=== PATIENT | male | born 1960 | race African-American/Black ===

== ENCOUNTER 2019-04-20 03:09 | Inpatient (IN) ==
[2019-04-20] MEDS ORDERED: TORADOL IV ONE (03:22)
[2019-04-20] MEDS ORDERED: NS 1,000 ML IV ONE (03:22)
--- NOTE | 2019-04-20 03:23 | PROVIDER DOCUMENTATION ---
HPI-Abdominal Pain/GI Problem - General Stated Complaint: abdominal pain Time Seen by Provider: 04/20/19 03:21 Allergies/Adverse Reactions: Patient Allergies Allergy/AdvReac Type Severity Reaction Status Date / Time No Known Allergies Allergy Verified 07/27/18 01:38 Home Medications: Home Medication List Medication Instructions Recorded Confirmed Last Taken Type Omeprazole 20 mg PO DAILY #30 capsule. 07/27/18 Unknown Rx Sulfamethoxazole/Trimethoprim 1 ea PO BID #14 tab 07/27/18 Unknown Rx [Bactrim Ds Tablet] - History of Present Illness-ABD Nature of Presenting Problems: A 58 Y/O MALE PRESENTS WITH C/O R LOWER ABD PAIN FOR PAST 1-2 HRS. PAIN IS LOCALIZED AND ABOUT A 10 AND SHARP IN NATURE. DENIES ANY OTHER SYMPTOMS. Abdominal Pain Onset Location: reports: RLQ Pain Radiation: reports: no radiation Quality of Pain: reports: sharp, stabbing Severity in ED: reports: severe Onset/Duration: reports: 1-3 hours ago Timing: reports: still present, constant Activities at Onset: reports: none Exposure to sick contacts?: No Modifying Factors: improves with: nothing Associated Symptoms: reports: constipation, genitourinary problems. denies: chest pain, cough, diarrhea, fatigue, fever/chills, muscle aches, nausea, shortn ess of breath, pain with inspiration, vomiting Last BM: unsure Dark Stools Present?: reports: none noticed Rectal Bleeding: reports: none Rectal Pain: reports: none Emesis Description: reports: none Bruising or Bleeding Gums?: No Similar Symptoms Previously?: No Recently seen or treated by another doctor?: No Review of Systems - Adult - REVIEW OF SYSTEMS - ADULT Constitutional: denies: no symptoms reported Eyes: denies: no symptoms reported Ears, Nose, Mouth & Throat: denies: no symptoms reported Cardiovascular: denies: no symptoms reported Respiratory: denies: no symptoms reported Gastrointestinal: reports: see HPI Genitourinary: reports: see HPI Musculoskeletal: denies: no symptoms reported Integumentary: denies: no symptoms reported Neurological: denies: no symptoms reported Psychiatric: denies: no symptoms reported Endocrine: denies: no symptoms reported Hematologic/Lymphatic: denies: no symptoms reported Allergic/Immunologic: denies: no symptoms reported Past History - Adult - PAST MEDICAL HISTORY-ADULT Review of Records: reports: Nursing Assessment Review, Medications Reviewed, Social history reviewed & non-contributory. Major Childhood Illnesses: reports: denies history Cardiovascular: reports: denies history Respiratory: reports: denies history Gastrointestinal: reports: denies history Obstetrical/Gynecological: reports: denies history Genitourinary: reports: denies history Musculoskeletal: reports: denies history Neurological: reports: denies history Endocrine/Immune: reports: denies history Other Conditions: reports: denies history - IMMUNIZATION STATUS Childhood Immunizations: See Nurse Assessment Flu Vaccine: See Nurse Assessment - FAMILY HISTORY Family History: reviewed, not pertinent Physical Exam-General - CONSTITUTIONAL General Appearance: alert, moderate distress - EYES Eyes: PERRL/EOMI - HEAD, EARS, NOSE, MOUTH & THROAT HENMT: normocephalic/atraumatic, moist mucous membranes, normal ENT inspection - NECK Neck: supple - RESPIRATORY Respiratory: lungs clear, normal breath sounds, no respiratory distress, no accessory muscle use - CARDIOVASCULAR Cardiovascular: no murmur, tachycardia - GASTROINTESTINAL (ABDOMEN) Abdominal Exam: normal bowel sounds, soft, tenderness (RLQ). negative: McBurney's point tenderness, Hardy's sign - MUSCULOSKELETAL Back Exam: no CVA tenderness, no vertebral tenderness Extremity: no pedal edema - SKIN Integumentary: normal color, warm/dry - NEUROLOGIC Neurologic: grossly normal - PSYCHIATRIC Psych/Mental Status: normal mood/affect, oriented x 3, anxious Progress - PLAN OF CARE/RESULTS Progress/Plan/Lab Results: Orders Category Date Time Status Saline Loc DIRECTED Care 04/20/19 03:21 Ordered NPO Diet 04/20/19 03:[address] ABDOMEN/PELVIS W/O CONTRAST [CT] Stat Exams 04/20/19 03:22 Ordered AMYLASE [CHEM] Stat Lab 04/20/19 03:21 Uncollected CBC WITH ELECTRONIC DIFF [HEME] Stat Lab 04/20/19 03:21 Uncollected COMPREHENSIVE METABOLIC PANEL [CHEM] Stat Lab 04/20/19 03:21 Uncollected LACTATE, PLASMA [CHEM] Stat Lab 04/20/19 03:23 Uncollected LIPASE [CHEM] Stat Lab 04/20/19 03:21 Uncollected URINALYSIS W/POSS RFLX CULT [URINALYSIS] Stat Lab 04/20/19 03:21 Uncollected Ketorolac [Toradol] Med 04/20/19 03:22 Once 30 mg IV NOW ONE Ns 1000 ml IV Bolus X1 Med 04/20/19 03:22 Ordered 0.9% Sodium Chloride Inj [Ns] 1,000 ml IV 999 mls/hr Result Diagrams: 04/20/19 04:20 04/20/19 04:20 - CT/MRI 1 CT Study: Abdomen Impression: Abnormal, See EMR Report - CONSULTS/PCP/HOSPITALIST Notification #1 *Consult/PCP/Hospitalist*: DR FRAZIER Time Discussed: 06:58 Reason/Comments: RECOMMENDED TO ADMIT TO HOSPITALIST, IF PAIN IS NOT CONTROLLED #2 Consult: DR GONZALES Time Discussed: 07:00 Consult Disposition: Admit Departure - Departure Date of Disposition Decision: 04/20/19 Time of Disposition Decision: 06:59 DIAGNOSIS: Hydronephrosis, Hydroureter, Abdominal pain Disposition: ADMITTED INPATIENT 09 Certified Medical Emergency: Emergent Condition: Stable Referrals and Follow-Ups: None,PCP [Primary Care Provider] - - Critical Care Note This patient required my direct & personal management of CC.: No Attestation - Physician/ JEREMIAH Attestation Patient care was provided by Advanced Practice Provider:: No The physician spent face to face time with patient:: Yes Advanced Practice Provider documentation review:: Supervising physician onsite and consulted in the evaluation and care of this patient. The physician did have a face to face encounter with the patient.
[2019-04-20 04:52] LABS: AGAP 12; ALBUMIN 3.8 g/dL (3.5-5.0); ALKALINE PHOSPHATASE 139 U/L (32-122); AMYLASE 69 U/L (20-200); BUN 15 mg/dL (8-22); CALCIUM 8.9 mg/dL (8.8-10.2); CHLORIDE 98 mmol/L (98-107); COSMO 273; CREATININE 0.8 mg/dL (0.7-1.2); ESTIMATED GFR > 60; GLUCOSE 108 mg/dL (70-104); GOT 20 U/L (10-34); GPT 9 U/L (10-44); LIPASE 122 U/L (13-60); POTASSIUM 3.9 mmol/L (3.5-5.1); SODIUM 136 mmol/L (136-145); TCO2 26 mmol/L (25-35); TOTAL BILIRUBIN 0.55 mg/dL (0.20-1.00); TOTAL PROTEIN 7.5 g/dL (6.3-8.3)
[2019-04-20 04:57] LABS: BASO# 0.05 X1000 (0.0-0.2); BASO% 0.5 % (0.0-0.8); EOS# 0.01 X1000 (0.0-0.7); EOS% 0.1 % (0.0-10.0); HEMATOCRIT 50.9 % (42.0-52.0); HEMOGLOBIN 17.7 g/dL (14.0-18.0); IMM GRAN# 0.02 X1000 (0.0-0.04); IMM GRAN% 0.2 % (0.0-0.5); LYMPH# 1.56 X1000 (1.2-3.4); LYMPH% 16.8 % (20.5-51.1); MCH 32.2 PG (27-31); MCHC 34.8 g/dL (33-37); MCV 92.7 FL (81-99); MONO# 0.82 X1000 (0.11-0.59); MONO% 8.9 % (1.7-9.3); MPV 11.4 FL (7.4-10.4); NEUT% 73.5 % (42.2-75.2); PLT 166 X1000 (130-400); RBC 5.49 XMIL (4.7-6.1); RDW 12.9 % (11.5-14.5); WBC 9.26 X1000 (4.8-10.8)
--- NOTE | 2019-04-20 05:40 | Diag Imaging Result Doc PS360 ---
EXAM: CT ABDOMEN/PELVIS W/O CONTRAST HISTORY: abd pain TECHNIQUE: CT abdomen and pelvis without contrast COMPARISON: 07/27/2018 FINDINGS: There are tiny nodules in the lung bases similar to the prior study. No focal hepatic abnormality identified on this noncontrasted exam. No calcified stones. Normal spleen, pancreas, and adrenal glands. Severe atherosclerosis. Mild dilatation of the distal abdominal aorta measuring 2.9 cm. There are multiple bilateral renal stones. The largest on the right measures 8 mm the largest measures 4 mm. No left-sided hydronephrosis. Mild right-sided hydronephrosis. There is thickening to the wall of urinary bladder although it is poorly distended. No bowel obstruction. Appendix is not identified. No abscess. Normal prostate. Prior surgery to the left hip. IMPRESSION: 1.Multiple bilateral renal stones with right-sided hydronephrosis, but no ureteral stone. There was no hydronephrosis on the prior study. 2.Severe atherosclerosis 3.Nondistended urinary bladder versus cystitis 4.A preliminary report was given at 4:13 AM This exam was performed using automated exposure control, adjustment of mA or kV according to patient size, and/or use of iterative reconstruction technique. Electronically signed by Duglas Lamar 04/20/2019 5:38 AM
[2019-04-20 06:24] LABS: URINE SOURCE CLEAN CATCH
[2019-04-20 07:01] LABS: UR AMPHETAMINES QUAL PRESUMPTIVE POSITIVE (NONE DETECT); UR BARBITUATES QUAL NONE DETECTED (NONE DETECT); UR BENZODIAZEPIN QUAL NONE DETECTED (NONE DETECT); UR CANNABINOIDS QUAL NONE DETECTED (NONE DETECT); UR COCAINE QUAL NONE DETECTED (NONE DETECT); UR METHADONE QUAL NONE DETECTED (NONE DETECT); UR OPIATES QUAL NONE DETECTED (NONE DETECT); UR OXYCODONE QUAL NONE DETECTED (NONE DETECT); UR PCP QUAL NONE DETECTED (NONE DETECT)
[2019-04-20] MEDS ORDERED: ZOFRAN IM ONE (07:01)
[2019-04-20] MEDS ORDERED: MORPHINE IV ONE (07:01)
[2019-04-20 07:58] LABS: UR EPITHELIAL CELLS <10 /HPF (<10); URINE BACTERIA NEGATIVE /HPF; URINE RBC TNTC /HPF (<10); URINE WBC <10 /HPF (<10)
[2019-04-20 08:07] LABS: BILIRUBIN URINE NEGATIVE (NEGATIVE); BLOOD URINE LARGE (NEGATIVE); COLOR ORANGE; GLUCOSE URINE NEGATIVE (NEGATIVE); KETONE URINE 60 mg/dL (NEGATIVE); LEUKOCYTES URINE NEGATIVE (NEGATIVE); NITRITE URINE NEGATIVE (NEGATIVE); PROTEIN URINE 30 mg/dL (NEGATIVE); SP GRAVITY URINE 1.022; TURBIDITY URINE HAZY (CLEAR); UROBILINOGEN URINE 2 mg/dL (NORMAL)
[2019-04-20] MEDS ORDERED: TYLENOL PO PRN (08:07)
[2019-04-20] MEDS ORDERED: ZOFRAN IV PRN (08:07)
[2019-04-20] MEDS ORDERED: NORCO-7.5 PO PRN (08:07)
[2019-04-20] MEDS ORDERED: MORPHINE IV PRN ×2 (08:08→08:11)
[2019-04-20] MEDS ORDERED: APRESOLINE IV ONE (08:09)
[2019-04-20] MEDS ORDERED: APRESOLINE IV PRN (08:09)
[2019-04-20] MEDS: M.V.I.-12 10 ML, FOLIC ACID 1 MG, MAGNESIUM SULFATE 1 GM, THIAMINE 100 MG in NS 1,000 ML IV SCH (09:00)
[2019-04-20] MEDS ORDERED: M.V.I.-12 10 ML, FOLIC ACID 1 MG, MAGNESIUM SULFATE 1 GM, THIAMINE 100 MG in NS 1,000 ML IV ONE (10:00)
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
[2019-04-20] MEDS: NS 1,000 ML IV SCH ×3 (11:52→23:16)
[2019-04-20] MEDS ORDERED: ROCEPHIN 1 GM in NS 50 ML IV ONE (11:58)
[2019-04-20] MEDS ORDERED: NEOSPORIN G.U. IRRIGANT ONE (12:48)
[2019-04-20] MEDS ORDERED: XYLOCAINE-MPF 2% ONE (12:49)
[2019-04-20] MEDS ORDERED: DIPRIVAN 1% ONE (12:49)
[2019-04-20] MEDS ORDERED: NEO-SYNEPHRINE ONE (13:18)
[2019-04-20] MEDS ORDERED: DITROPAN PO PRN (14:06)
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
--- NOTE | 2019-04-20 16:36 | OPERATIVE NOTE ---
PROCEDURE DATE: 04/20/2019 SURGEON: Arturo Lopez MD. PREOPERATIVE DIAGNOSIS: Severe right flank pain with bilateral renal lithiasis and right hydroureteronephrosis. POSTOPERATIVE DIAGNOSIS: 1. Severe right flank pain with bilateral renal lithiasis and right hydroureteronephrosis. 2. A probable spontaneously passed right ureteral stone. PROCEDURE PERFORMED: 1. Cystoscopic exam, bilateral retrograde ureteral pyelograms. 2. Placement of a right double-J stent. FINDINGS: Cystoscopic exam: Urethra-greater than 21 Trinidadian without stricture. Prostate-mild hypertrophy of the lateral lobes, elevated bladder neck, length approximately 3 cm. Bladder- normal ureteral orifices bilaterally. There appeared to be small amounts of stone debris in the bladder. There were grade 1-2 trabeculations. No papillary lesions. Small cellules noted. Left retrograde ureteral pyelogram normal without filling defect. Right retrograde ureteral pyelogram reveals a normal ureter inferior to the pelvic brim. Above the pelvic brim it was somewhat dilated and tortuous. There was a filling defect in the right lower pole kidney consistent with his 8 mm stone seen on CT scan. No other filling defects were noted. Rectal exam reveals a prostate of about 30 g, smooth, and symmetric. INDICATION FOR PROCEDURE: This 58-year-old male with a history of intermittent gross hematuria, bilateral renal lithiasis and severe right flank pain was admitted for further evaluation. DESCRIPTION OF PROCEDURE: After informed consent was obtained from the patient, him receiving IV antibiotics, he was taken the main OR cystoscopy room and placed in the supine position. General anesthesia via laryngeal mask was achieved. He was then placed in the low lithotomy position and prepped and draped in the usual sterile fashion for cystoscopic exam. A 21-Trinidadian cystoscope was passed through the patient's urethra, prostate, and in the bladder. Findings noted above. An 8- Trinidadian cone-tipped catheter was passed through the cystoscope, engaged left ureteral orifice. Contrast was injected. Right side was accomplished similarly. Findings are as noted above. The only filling defect was in the right lower pole kidney consistent with the 8 mm stone. The 8- Trinidadian cone-tipped catheter was removed. A 0.035 ZIPwire was passed through the cystoscope, engaged the right ureteral orifice, advanced up into the kidney. Area below the kidney the ureter became very tortuous and the patient was placed in Trendelenburg and finally the ureter straightened out and the wire was advanced up into the kidney. A 6-Trinidadian, 24 cm double-J stent was passed over the ZIPwire and up into the kidney. The renal end was verified by fluoroscopic exam, bladder end directly visualized. The bladder was drained. Cystoscope was removed. Stent removal string securely taped the penile shaft. Rectal exam was performed. He tolerated the procedure well. Estimated blood loss was 0. He was taken to recovery room in good condition. cc: Arturo Lopez MD
[2019-04-21 06:10] LABS: BASO# 0.02 X1000 (0.0-0.2); BASO% 0.3 % (0.0-0.8); EOS# 0.09 X1000 (0.0-0.7); EOS% 1.4 % (0.0-10.0); HEMATOCRIT 44.8 % (42.0-52.0); HEMOGLOBIN 15.2 g/dL (14.0-18.0); IMM GRAN# 0.02 X1000 (0.0-0.04); IMM GRAN% 0.3 % (0.0-0.5); LYMPH# 2.32 X1000 (1.2-3.4); LYMPH% 35.9 % (20.5-51.1); MCH 32.4 PG (27-31); MCHC 33.9 g/dL (33-37); MCV 95.5 FL (81-99); MONO# 0.63 X1000 (0.11-0.59); MONO% 9.8 % (1.7-9.3); MPV 11.8 FL (7.4-10.4); NEUT# 3.38 X1000 (1.4-6.5); NEUT% 52.3 % (42.2-75.2); PLT 162 X1000 (130-400); RBC 4.69 XMIL (4.7-6.1); RDW 13.3 % (11.5-14.5); WBC 6.46 X1000 (4.8-10.8)
[2019-04-21 06:16] LABS: INR 0.98; PROTIME 13.7 Seconds (11.0-16.0)
[2019-04-21 06:17] LABS: PTT 39.1 Seconds (22.3-41.8)
[2019-04-21 06:36] LABS: AGAP 7; ALB/GLOB RATIO 0.9; ALBUMIN 2.7 g/dL (3.5-5.0); ALKALINE PHOSPHATASE 95 U/L (32-122); BUN 14 mg/dL (8-22); CALCIUM 8.1 mg/dL (8.8-10.2); CHLORIDE 107 mmol/L (98-107); COSMO 280; CREATININE 0.8 mg/dL (0.7-1.2); ESTIMATED GFR > 60; GLUCOSE 105 mg/dL (70-104); GOT 17 U/L (10-34); GPT 7 U/L (10-44); MAGNESIUM 1.9 mg/dL (1.5-2.7); POTASSIUM 3.8 mmol/L (3.5-5.1); SODIUM 140 mmol/L (136-145); TCO2 26 mmol/L (25-35); TOTAL BILIRUBIN 0.29 mg/dL (0.20-1.00); TOTAL PROTEIN 5.6 g/dL (6.3-8.3)
[2019-04-21] MEDS: PERIDEX MT SCH ×2 (11:50→21:26)
[2019-04-21] MEDS: M.V.I.-12 10 ML, FOLIC ACID 1 MG, MAGNESIUM SULFATE 1 GM, THIAMINE 100 MG in NS 1,000 ML IV SCH (11:50)
[2019-04-21] MEDS: NS 1,000 ML IV SCH ×2 (11:50→21:26)
[2019-04-21] MEDS ORDERED: LIBRIUM PO PRN (13:44)
--- NOTE | 2019-04-21 13:55 | PROGRESS NOTE ---
DATE: 04/21/2019 SUBJECTIVE: Patient is resting in bed. OBJECTIVE: Vital signs: Temperature 98.3 degrees, pulse 84, respiratory 16, blood pressure 167/96, O2 saturation is 98%. HEENT: Atraumatic, normocephalic. Cardiovascular: S1, S2. Respiratory system: Has evidence of good air entry bilaterally. Abdomen: Soft, nontender. No masses felt. Extremities: No evidence of edema. Central nervous system: No obvious focal deficits noted. LABORATORY DATA: WBC 6.46, hematocrit 44.8, with a platelet count of 116,000. Sodium 140, potassium 3.8, chloride is 107, bicarb 26, BUN is 14, creatinine 0.8. ASSESSMENT AND PLAN: 1. Bilateral renal stones with right sided hydronephrosis. Status post placement of right double- J stent. Urology following. Obtain urine culture as well as blood cultures. Optimize pain control. 2. History of probable chronic pancreatitis. Lipase level noted to be raised. CT scan of the abdomen and pelvis indicates a normal pancreas. Check repeat lipase level. 3. Alcoholism. Maintain patient on delirium tremens prophylaxis. Thiamine, folic acid, as well as multivitamin. Check magnesium and phosphorus level and correct those if needed. 4. Deep vein thrombosis prophylaxis. Sequential compression devices. cc: Jamar Urena MD
--- NOTE | 2019-04-22 07:31 | Diag Imaging Result Doc PS360 ---
EXAM: RETROGRADES 2 OR 3 FILMS 04/20/2019 HISTORY: RT FLANK PAIN, CHRONIC HEMATURIA TECHNIQUE: 74 images COMMENT: Bilateral retrograde pyelography was performed. The right ureter is markedly tortuous. There is a stone in the lower pole calyx on the right. A right ureteral stent was placed. No evidence of fixed intraluminal filling defect is present on either side otherwise. There is some dilatation of the right renal pelvis. The left system drains appropriately. IMPRESSION: Right ureteral stent placement. Electronically signed by Mark Monique 04/22/2019 7:29 AM
[2019-04-22 07:34] LABS: HEMATOCRIT 42.3 % (42.0-52.0); HEMOGLOBIN 14.2 g/dL (14.0-18.0); MCH 32.5 PG (27-31); MCHC 33.6 g/dL (33-37); MCV 96.8 FL (81-99); MPV 11.6 FL (7.4-10.4); RBC 4.37 XMIL (4.7-6.1); RDW 13.2 % (11.5-14.5); WBC 6.17 X1000 (4.8-10.8)
[2019-04-22 07:46] LABS: AGAP 7; ALB/GLOB RATIO 1.1; ALBUMIN 2.9 g/dL (3.5-5.0); ALKALINE PHOSPHATASE 91 U/L (32-122); BUN 10 mg/dL (8-22); CALCIUM 7.8 mg/dL (8.8-10.2); CHLORIDE 106 mmol/L (98-107); COSMO 280; CREATININE 0.7 mg/dL (0.7-1.2); ESTIMATED GFR > 60; GLUCOSE 95 mg/dL (70-104); GOT 15 U/L (10-34); GPT 7 U/L (10-44); LIPASE 52 U/L (13-60); POTASSIUM 3.8 mmol/L (3.5-5.1); SODIUM 141 mmol/L (136-145); TCO2 28 mmol/L (25-35); TOTAL BILIRUBIN 0.29 mg/dL (0.20-1.00); TOTAL PROTEIN 5.6 g/dL (6.3-8.3)
[2019-04-22] MEDS: M.V.I.-12 10 ML, FOLIC ACID 1 MG, MAGNESIUM SULFATE 1 GM, THIAMINE 100 MG in NS 1,000 ML IV SCH (08:39)
[2019-04-22] MEDS: PERIDEX MT SCH (08:40)
[2019-04-22] MEDS ORDERED: FOLIC ACID PO SCH (09:00)
[2019-04-22] MEDS ORDERED: VITAMIN B-1 PO SCH (09:00)
[2019-04-22] MEDS ORDERED: DULCOLAX PR ONE (11:37)
[2019-04-22] MEDS ORDERED: SORBITOL PO ONE (11:38)
[2019-04-22] MEDS ORDERED: MIRALAX PO ONE (11:38)
[2019-04-22] MEDS ORDERED: NORVASC PO ONE (11:44)
[2019-04-22] MEDS ORDERED: COREG PO SCH (11:45)
--- NOTE | 2019-04-22 13:45 | Diag Imaging Result Doc PS360 ---
EXAM: ABDOMEN FLAT/UPRIGHT 04/22/2019 HISTORY: constipation TECHNIQUE: Flat and upright abdomen two views COMMENT: There is retained fluid and solid contents in the stomach. There is stool throughout the colon. The small bowel is not distended. There is a stent in the right ureter. Compared to 12/17/2011 there is slightly less colonic stool. There is no evidence of organomegaly or mass. IMPRESSION: Constipation. Electronically signed by Mark Monique 04/22/2019 1:43 PM
[2019-04-22 17:18] VITALS: BP 167/90
[2019-04-22] MEDS ORDERED: FLEET MINERAL OIL ENEMA PR ONE (18:43)
--- NOTE | 2019-04-22 20:39 | PROGRESS NOTE ---
DATE: 04/22/2019 SUBJECTIVE: The patient is resting comfortably in bed. He states that he has not had a bowel movement in several days. OBJECTIVE: Vital Signs: Temperature 98.7 degrees, blood pressure 167/90, heart rate 74, respirations 20, O2 saturation is 100% on room air. General: This is a chronically ill-appearing male sitting at the edge of the bed in no acute distress. Heart: S1, S2 normal. Regular rate and rhythm. Lungs: Clear to auscultation bilaterally. Abdomen: Positive bowel sounds. Soft, nontender, nondistended. Extremities: No edema, no cyanosis. Neurologic: The patient is alert and oriented x3. LABS: Reviewed. ASSESSMENT AND PLAN: 1. Status post right double-J stent, secondary to bilateral renolithiasis and right hydroureteronephrosis. The patient will follow up with Dr. Lopez upon discharge. 2. Alcohol dependence. The patient has been counseled about alcohol cessation. 3. Uncontrolled hypertension. We will start the patient on Coreg and Norvasc. 4. Constipation. Will start the patient on scheduled laxative therapy. 5. Disposition. The patient can be discharged home once he has a bowel movement. cc: Tess Zavala MD MTDD
--- NOTE | 2019-04-28 05:41 | DISCHARGE SUMMARY ---
ADMISSION DATE: 04/20/2019 DISCHARGE DATE: 04/22/2019 FINAL DISCHARGE DIAGNOSES: 1. Status post right double-J stent, secondary to bilateral renolithiasis and right hydroureteronephrosis. 2. Alcohol dependence. 3. Uncontrolled hypertension. 4. Constipation. CONSULTATIONS: Urology consultation with Dr. Lopez. HOSPITAL COURSE: Mr. Ordoñez is a 58-year-old male with a history of tobacco dependence and alcohol abuse who presented to the ER with a chief complaint of hematuria and right flank pain. On admission, a CT of the abdomen and pelvis was done that revealed multiple bilateral renal stones with right-sided hydronephrosis but no ureteral stone. The patient was admitted to the hospitalist service and Neurology was consulted. The patient was taken to the OR on March at which time a cystoscopy was done and placement of a right double-J stent was performed. Following the procedure, the patient started to improve clinically. The patient was noted to have an elevated blood pressure and so antihypertensive medications were initiated during this hospitalization. The patient was again counseled on the importance of smoking cessation and alcohol cessation. The patient continued to improve clinically and was ultimately cleared for discharge home on 04/22/2019. DISCHARGE MEDICATIONS: 1. Norvasc 5 mg p.o. daily. 2. Coreg 6.25 mg oral every 12 hours. 3. MiraLAX 17 g oral daily. DISCHARGE DIET: Low-sodium, low-cholesterol diet. ACTIVITY: As tolerated. FOLLOWUP INSTRUCTIONS: The patient will need to follow up with Dr. Lopez as scheduled by his clinic. cc: Tess Zavala MD MTDD
== END 2019-04-22 20:35 | disposition home or self-care (01) | DRG 661 ==
LOC: SUPCPDRO → ED 03:09 → SUATTDRO 10:00 → 4N 10:00
PROVIDERS: ATTEND Internal Medicine
CPT/HCPCS: 74019; 74020; 74176; 74420; 80053; 80101; 80301; 80307; 80324; 80345; 80346; 80353; 80358; 80361; 80365; 81001; 82150; 83605; 83690; 83735; 83992; 84100; 85025; 85027; 85610; 85730; 87040; 87088; 94761; 94799; 96361; 96374; 96375; 99285; A9270; G0431; G0434; G0479; G0480; J0360; J0696; J1885; J2270; J2370; J2405; J3411; J3475; J7030; Q9966; Q9967